=== PATIENT | female | born 1945 | race Caucasian/White ===

== ENCOUNTER 2024-06-12 09:17 | Emergency (ER) | payer OTHER ==
[2024-06-12 09:23] VITALS: RESP 16; BMI 24.1
[2024-06-12 11:26] LABS: URINE APPEARANCE CLEAR; URINE BILIRUBIN NEGATIVE (NEGATIVE); URINE COLOR YELLOW; URINE GLUCOSE (UA) NEGATIVE (NEGATIVE); URINE KETONE NEGATIVE (NEGATIVE); URINE LEUK ESTERASE NEGATIVE (NEGATIVE); URINE NITRITE NEGATIVE (NEGATIVE); URINE PROTEIN NEGATIVE (NEGATIVE); URINE UROBILINOGEN 0.2 mg/dL (0.2-1.0)
[2024-06-12 11:32] LABS: BASO % 0.4 % (0-2.0); EOS % 0.5 % (0-4.5); HEMATOCRIT 39.4 % (32.4-45.2); HEMOGLOBIN 13.1 GM/dL (10.7-15.3); LYMPH % 9.2 % (8-40); MCH 26.2 pg (25.7-33.7); MCHC 33.3 g/dl (32.0-36.0); MEAN CELL VOLUME 78.7 fl (80-96); MEAN PLT VOLUME 9.7 fl (7.5-11.1); MONO % 6.6 % (3.8-10.2); NEUT % 83.3 % (42.8-82.8); PLATELET COUNT 197 10^3/uL (134-434); RBC 5.01 M/mm3 (3.60-5.2); RDW 14.4 % (11.6-15.6); WHITE BLOOD COUNT 13.2 K/mm3 (4.0-10.0)
[2024-06-12 11:33] LABS: INR 1.05 (0.83-1.09); PROTHROMBIN TIME (PATIENT) 11.9 SEC (9.7-13.0)
[2024-06-12 11:36] LABS: ACTIVATED PTT 32.6 SECONDS (25.2-36.5)
[2024-06-12 11:58] LABS: POTASSIUM 3.7 mmol/L (3.5-5.1)
[2024-06-12 12:01] LABS: CALCIUM 9.8 mg/dL (8.5-10.1)
[2024-06-12 12:02] LABS: ALBUMIN 3.9 g/dl (3.4-5.0); BLOOD UREA NITROGEN 10.2 mg/dL (7-18)
[2024-06-12 12:05] LABS: CREATININE 0.7 mg/dL (0.55-1.3)
[2024-06-12 12:06] LABS: BILIRUBIN,TOTAL 0.6 mg/dL (0.2-1)
[2024-06-12 13:36] LABS: HIV INTERPRETATION NEGATIVE (NEGATIVE)
[2024-06-12] MEDS: CIPROFLOXACIN 400 MG/D5W 400 MG/200 ML IVPB IVPB ONE (15:13)
[2024-06-12] MEDS: CIPROFLOXACIN 500 MG TABLET (RESTRICTED TO ID) PO ONE (16:15)
[2024-06-12 16:35] VITALS: BP 138/75; PULSE 79; TEMP 97.9
== END 2024-06-12 16:25 | disposition home or self-care (01) ==
LOC: JER 09:17
DX: K57.32 Diverticulitis of large intestine without perforation or abscess without bleeding (principal); R30.0 Dysuria; R10.32 Left lower quadrant pain; R35.0 Frequency of micturition
CPT/HCPCS: 36415; 74177-TC; 80053; 81003; 83605; 83690; 84484; 85025; 85610; 85730; 86803; 87086; 87389; 93005; 93010; 99285-25; Q9967

== ENCOUNTER 2024-08-30 10:22 | Day surgery (SDC) | payer OTHER ==
[2024-08-30] MEDS: ZOLEDRONIC ACID/MAN/WATER 5 MG/100 ML INFUS..BTL IVPB ONE (11:16)
[2024-08-30 12:20] VITALS: BP 139/76; PULSE 85; RESP 16; TEMP 97.8
== END 2024-08-30 14:24 | disposition home or self-care (01) ==
LOC: FINFUSION 10:22 → FM/S 10:26 → FINFUSION 14:24
PROVIDERS: ATTEND Family Medicine
PROC: 3E033GC Introduction of Other Therapeutic Substance into Peripheral Vein, Percutaneous Approach (ICD-10-PCS; principal; 2024-08-30)
DX: M81.0 Age-related osteoporosis without current pathological fracture (principal)
CPT/HCPCS: 96365; J3489